=== PATIENT | male | born 1945 | race Caucasian/White ===

== ENCOUNTER 2023-07-27 21:13 | Observation (INO) | payer MEDICARE, SELFPAY ==
--- NOTE | ~2023-07-27 | CT_ITS ---
EXAMINATION: CT brain wo con DATE: 07/27/2023 22:02 INDICATION: fall head injury . TECHNIQUE: Computed tomography (CT) of the head was performed without intravenous contrast. The mA wa s adjusted according to patient size. Iterative reconstruction technique was employed. The dose-lengt h product was 605.33 mGy-cm. COMPARISON: None. FINDINGS: No acute intracranial hemorrhage or extra-axial fluid collection. No hydrocephalus, mass, or herniation. No acute ischemic infarct. Unremarkable dural venous sinus attenuation. No acute osseous abnormality. The aerated spaces are clear. Moderate atrophy and chronic white matter change. Atherosclerotic intracranial calcification. Bilater al lens replacements. Right frontal and parietal encephalomalacia. IMPRESSION: No acute intracranial process. Reviewed, dictated and finalized at location K.
--- NOTE | ~2023-07-27 | CT_ITS ---
EXAMINATION: CT cervical spine wo con DATE: 07/27/2023 22:02 INDICATION: neck pain status post fall TECHNIQUE: Computed tomography (CT) of the cervical spine was performed without intravenous contrast. Automated exposure control and iterative reconstruction technique were employed. The dose-length pro duct was 310.04 mGy-cm. COMPARISON: None. FINDINGS: Vertebral Body Alignment: Intact. Craniocervical and atlantoaxial alignment: Moderate degenerative change. Alignment intact. Osseous structures/fracture: No evidence of a lytic or blastic process in the visualized spine. No e vidence of acute fracture. Cervical soft tissues: The paraspinal soft tissues planes are maintained. Biapical pleural scarring. Degenerative changes: Degenerative changes, without severe neural foraminal or central canal narrowin g. IMPRESSION: No acute fracture or traumatic malalignment in the cervical spine. Reviewed, dictated and finalized at location K.
--- NOTE | ~2023-07-27 | CT_ITS ---
EXAMINATION: CT thoracic spine wo con DATE: 07/27/2023 22:02 INDICATION: back pain . TECHNIQUE: Computed tomography (CT) of the thoracic spine was performed without intravenous contrast. Automated exposure control and iterative reconstruction technique were employed. The dose-length pro duct was 800.01 mGy-cm. COMPARISON: None FINDINGS: THORACIC SPINE: Multilevel moderate degenerative disc disease. Mild angular kyphosis centered at T12. Severe anterior wedge deformity at T12, with minimal involvement of the fracture lines with the posterior cortex and no retropulsion. No significant paraspinal hematoma. Aortic valve and coronary artery calcifications . Moderate atherosclerotic calcifications of the aorta. Calcified mediastinal lymph node. Biapical pl eural scarring. Senescent changes in the lungs. Dependent atelectasis. IMPRESSION: Severe, acute versus chronic burst fracture at T12 with no retropulsion. No comparisons are available . Correlate for history of remote trauma and current pain/point tenderness. Reviewed, dictated and finalized at location K. IMPRESSION: Severe, acute versus chronic burst fracture at T12 with no retropulsion. No com parisons are available. Correlate for history of remote trauma and current pain /point tenderness.
--- NOTE | ~2023-07-27 | XR_ITS ---
EXAMINATION: XR chest 1V Exam Date/Time: 07/27/2023 21:55 CDT HISTORY: fall, weakness Comparison: CT T-spine, same date.. RESULT: Lines, tubes, and devices: None. Lungs and pleura: Senescent change. Cardiomediastinal silhouette: Stable. Other: No acute upper abdominal finding. Severe height loss at T12. IMPRESSION: No acute cardiopulmonary process. Severe height loss at T12, please refer to the report on the [facility] CT thoracic spine for additional details. Reviewed, dictated and finalized at location K. IMPRESSION: No acute cardiopulmonary process. Severe height loss at T12, please refer to abhilash report on the concurrent CT thoracic spine for additional details.
[2023-07-27 21:14] VITALS: BP 137/66; PULSE 74; RESP 20; TEMP 37.1; O2SAT 97
[2023-07-27] MEDS: SODIUM CHLORIDE 0.9% IV 1,000 ML 999 ML IV CONT (21:30)
[2023-07-27 21:32] VITALS: BP 124/57; PULSE 71
[2023-07-27 21:33] VITALS: BP 129/57; PULSE 73
[2023-07-27 22:36] LABS: Basophils Percent Auto 0.3 % (0.2-1.2); Eosinophils Absolute Auto 0.1 K/mm3 (0-0.3); Eosinophils Percent Auto 0.7 % (0-4.4); Hematocrit 32.5 % (42.0-52.0); Hemoglobin 10.5 g/dL (14.0-18.0); Immature Granulocyte Absolute 0.18 K/mm3 (0.00-0.031); Immature Granulocyte Percent A 1.3 % (0-0.5); Lymphocytes Absolute Auto 1.34 K/mm3 (0.9-3.2); Lymphocytes Percent Auto 9.9 % (18.3-44.2); Mean Corpuscular HGB Conc 32.3 g/dl (32-36); Mean Corpuscular Hemoglobin 31.5 pg (26-34); Mean Corpuscular Volume 97.6 fl (80-100); Mean Platelet Volume 9.4 fl (7.4-10.4); Monocytes Absolute Auto 0.7 K/mm3 (0.1-0.6); Monocytes Percent Auto 5.2 % (2.6-8.5); Neutrophils Absolute Auto 11.1 K/mm3 (1.3-6.7); Neutrophils Percent Auto 82.6 % (45.5-73.1); Platelet Count Result 285 k/mm3 (150-375); Red Blood Count 3.33 M/mm3 (4.6-6.20); Red Cell Distribution Width 14.6 % (11.5-14.5); White Blood Count 13.5 K/mm3 (4.5-10.0)
[2023-07-27 22:47] LABS: INR 1.1; Prothrombin Time 14.2 Seconds (11.1-14.7)
[2023-07-27 22:48] LABS: Partial Thromboplastin Time 34.2 Seconds (22.3-36.8)
--- NOTE | 2023-07-27 22:49 | PC.NURSE ---
Patient called out to nursing station requesting pain medication. Notified EDP Dr. Warren.
[2023-07-27 22:50] LABS: Alanine Aminotransferase 46 U/L (6-50); Albumin Level 3.3 g/dL (3.5-5.1); Alkaline Phosphatase 233 U/L (38-126); Anion Gap 4 mmol/L (8-16); Aspartate Amino Transferase 60 U/L (17-59); Bilirubin,Total 0.5 mg/dL (0.2-1.3); Blood Urea Nitrogen 14 mg/dL (9-20); Calcium 8.8 mg/dL (8.4-10.2); Carbon Dioxide 23 mmol/L (22-30); Chloride 107 mmol/L (98-107); Estimated CRCL calculation 76 ml/min; Estimated Glomerular Filt Rate > 60; Glucose 192 mg/dL (65-110); Potassium 3.8 mmol/L (3.4-5.0); Sodium 134 mmol/L (137-145)
[2023-07-27 22:53] LABS: Lactic Acid Reflex 1.2 mmol/L (0.7-2.0); Magnesium 2.1 mg/dL (1.6-2.3)
[2023-07-27] MEDS: MORPHINE SULFATE (*CRX) 4 MG/ML INJ IV PUSH (22:55)
[2023-07-27 23:05] LABS: Troponin I < 0.012 ng/mL (0.000-0.034)
--- NOTE | 2023-07-27 23:13 | PM.IMHP ---
H&P: HPI History of Present Illness Date/Time: 07/27/23 23:13 Chief Complaint: FALL Narrative: THIS IS A 78-YEAR-OLD MALE STATUS POST TOTAL HIP ARTHROPLASTY OF THE RIGHT HIP, PATIENT RESIDING AT A REHABILITATION CENTER HIS SUSTAINED A FALL WAS BROUGHT TO THE EMERGENCY ROOM FOR EVALUATION FOUND TO HAVE A COMPRESSION FRACTURE OF THE VERTEBRAE. PATIENT IS NOW BEING PLACED FOR OBSERVATION. DENIES ANY LOSS OF CONSCIOUSNESS. NO DIZZINESS NO LIGHTHEADEDNESS, HAS LOWER BACK PAIN. EXAMINATION: CT brain wo con DATE: 07/27/2023 22:02 INDICATION: fall head injury . TECHNIQUE: Computed tomography (CT) of the head was performed without intravenous contrast. The mA was adjusted according to patient size. Iterative reconstruction technique was employed. The dose-length product was 605.33 mGy-cm. COMPARISON: None. FINDINGS: No acute intracranial hemorrhage or extra-axial fluid collection. No hydrocephalus, mass, or herniation. No acute ischemic infarct. Unremarkable dural venous sinus attenuation. No acute osseous abnormality. The? aerated spaces are clear. Moderate atrophy and chronic white matter change. Atherosclerotic intracranial calcification. Bilateral lens replacements. Right frontal and parietal encephalomalacia. IMPRESSION:? No acute intracranial process. EXAMINATION: CT cervical spine wo con DATE: 07/27/2023 22:02 INDICATION: neck pain status post fall TECHNIQUE: Computed tomography (CT) of the cervical spine was performed without intravenous contrast. Automated exposure control and iterative reconstruction technique were employed. The dose-length product was 310.04 mGy-cm. COMPARISON: None. FINDINGS: Vertebral Body Alignment: Intact. Craniocervical and atlantoaxial alignment: Moderate degenerative change. Alignment intact. Osseous structures/fracture: No evidence of a lytic or blastic process in the visualized spine.? No evidence of acute fracture. Cervical soft tissues: The paraspinal soft tissues planes are maintained. Biapical pleural scarring. Degenerative changes: Degenerative changes, without severe neural foraminal or central canal narrowing. IMPRESSION:? No acute fracture or traumatic malalignment in the cervical spine. EXAMINATION: CT thoracic spine wo con DATE: 07/27/2023 22:02 INDICATION: back pain . TECHNIQUE: Computed tomography (CT) of the thoracic spine was performed without intravenous contrast. Automated exposure control and iterative reconstruction technique were employed. The dose-length product was 800.01 mGy-cm. COMPARISON: None FINDINGS: THORACIC SPINE: Multilevel moderate degenerative disc disease. Mild angular kyphosis centered at T12. Severe anterior wedge deformity at T12, with minimal involvement of the fracture lines with the posterior cortex and no retropulsion. No significant paraspinal hematoma. Aortic valve and coronary artery calcifications. Moderate atherosclerotic calcifications of the aorta. Calcified mediastinal lymph node. Biapical pleural scarring. Senescent changes in the lungs. Dependent atelectasis. IMPRESSION: Severe, acute versus chronic burst fracture at T12 with no retropulsion. No comparisons are available. Correlate for history of remote trauma and current pain/point tenderness. EXAMINATION:? XR chest 1V Exam Date/Time:? 07/27/2023 21:55 CDT HISTORY: fall, weakness ? Comparison:? CT T-spine, same date.. RESULT: Lines, tubes, and devices:? None. Lungs and pleura:? Senescent change. Cardiomediastinal silhouette:? Stable. Other:? No acute upper abdominal finding. Severe height loss at T12. ? IMPRESSION: No acute cardiopulmonary process. Severe height loss at T12, please refer to the report on the concurrent CT thoracic spine for additional details. Review of Systems Review of Systems: FALL, LOWER BACK PAIN [facility] Social History Social History Sonia
[2023-07-27 23:18] VITALS: BP 137/74; PULSE 82; RESP 16; O2SAT 97
--- NOTE | 2023-07-27 23:22 | ED.GENADULT ---
HPI - General Adult General Chief complaint: Fall Stated complaint: fall Time Seen by Provider: 07/27/23 21:21 History of Present Illness HPI narrative: Patient 78-year-old gentleman presents emergency department chief complaint of back pain status post fall. The patient reports that is on Eliquis and is currently at [facility] and doing rehab after a recent hip fracture. Patient reports that he lost his balance fell backwards struck his head on carpet. Patient reports that he has pain in the mid back denies any weakness in the arms or legs. Related Data Allergies Allergy/AdvReac Type Severity Reaction Status Date / Time bee venom protein (honey bee) Allergy Unknown Verified 07/27/23 21:27 cephalexin [From Keflex] Allergy Unknown Verified 07/27/23 21:27 Review of Systems Review of Systems: A 10 system review of systems was completed on the patient and is negative except for what is stated in the HPI. Nursing and ancillary documentation was reviewed. Exam Narrative: GENERAL: Well-appearing, well-nourished, and in no acute distress. HEAD: Normocephalic, atraumatic. EYES: PERRLA and EOMI. ENT: Nares clear, no rhinorrhea or epistaxis. Mucous membranes moist. NECK: Supple. CHEST: Clear to auscultation. No respiratory distress. HEART: Regular rate and rhythm. No murmur heard. Normal peripheral pulses. ABDOMEN: Soft, nontender, nondistended, normal active bowel sounds. EXTREMITIES: Normal range of motion. No edema. Back: There is tenderness to palpation of the thoracic spine SKIN: Warm, dry, no rash. NEURO: No focal deficits. Alert and oriented x3. No saddle anesthesia PSYCH: Normal mood and affect. Course Vital Signs Vital signs: Vital Signs Temperature 37.1 C 07/27/23 21:14 Pulse Rate 74 07/27/23 21:14 Respiratory Rate 20 07/27/23 21:14 Blood Pressure 137/66 07/27/23 21:14 Pulse Oximetry 97 07/27/23 21:14 Oxygen Delivery Room Air 07/27/23 21:14 Temperature 37.1 C 07/27/23 21:14 Pulse Rate 82 07/27/23 23:18 Respiratory Rate 16 07/27/23 23:18 Blood Pressure 137/74 07/27/23 23:18 Pulse Oximetry 97 07/27/23 23:18 Oxygen Delivery Room Air 07/27/23 21:14 Medical Decision Making MDM Narrative Medical decision making narrative: Differential diagnosis includes intracranial hemorrhage, cervical spine fracture, thoracic spine fracture, electrolyte abnormality, UTI Laboratory studies were obtained on the patient showed normal CBC CMP showed no acute abnormalities troponin was negative Chest x-ray showed a T12 loss of height compression fracture CT chest showed evidence of compression fracture CT head CT C-spine showed no acute abnormality Vital Signs Vital Signs: Vital Signs Temperature 37.1 C 07/27/23 21:14 Pulse Rate 74 07/27/23 21:14 Respiratory Rate 20 07/27/23 21:14 Blood Pressure 137/66 07/27/23 21:14 Pulse Oximetry 97 07/27/23 21:14 Oxygen Delivery Room Air 07/27/23 21:14 Temperature 37.1 C 07/27/23 21:14 Pulse Rate 82 07/27/23 23:18 Respiratory Rate 16 07/27/23 23:18 Blood Pressure 137/74 07/27/23 23:18 Pulse Oximetry 97 07/27/23 23:18 Oxygen Delivery Room Air 07/27/23 21:14 Lab Data 07/27/23 22:29 07/27/23 22:29 Labs: Lab Results 07/27/23 Range/Units 22:29 WBC 13.5 H (4.5-10.0) K/mm3 RBC 3.33 L (4.6-6.20) M/mm3 Hgb 10.5 L (14.0-18.0) g/dL Hct 32.5 L (42.0-52.0) % MCV 97.6 (80-100) fl MCH 31.5 (26-34) pg MCHC 32.3 (32-36) g/dl RDW 14.6 H (11.5-14.5) % Plt Count 285 (150-375) k/mm3 MPV 9.4 (7.4-10.4) fl Immature Gran % (Auto) 1.3 H (0-0.5) % Neut % (Auto) 82.6 H (45.5-73.1) % Lymph % (Auto) 9.9 L (18.3-44.2) % Pettis % (Auto) 5.2 (2.6-8.5) % Eos % (Auto) 0.7 (0-4.4) % Baso % (Auto) 0.3 (0.2-1.2) % Lymph # (Auto) 1.34 (0.9-3.2) K/mm3 Pettis # (Auto) 0.7 H (0.1-0.6) K/mm3 Eos # (Auto) 0.1 (0-0.3) K/mm
[2023-07-27 23:34] LABS: Procalcitonin 0.1 ng/mL
[2023-07-27] MEDS: dexAMETHasone SOD PHOS INJ 10 MG/ML 1 ML VIAL IV PUSH (23:34)
--- NOTE | 2023-07-27 23:38 | PC.NURSE ---
Patient stated his pain was still a 11/16. Notified EDP Dr. Warren who VRBO anther dose of morphine 2mg IVP.
[2023-07-27] MEDS: MORPHINE SULFATE (*CRX) 2 MG/ML INJ IV PUSH (23:41)
[2023-07-28] VITALS (8 sets, daily range): BP systolic 141–168; BP diastolic 62–78; PULSE 71–88; RESP 12–18; TEMP 36.1–37.1; O2SAT 97–100
--- NOTE | 2023-07-28 01:25 | ADMGEN ---
This patient, Bruno Baker, was admitted to [facility] Surg Room 306-02. Patient/family oriented to hospital policies and general routines including ID bracelet, bed and alarms, visiting hours, pain management, procedures, bathroom and other care routines, personal items, smoking policy, room service/diet, and visiting hours. Information on how to activate the Rapid Response Team has been discussed. Patient/Family are encouraged to report perceived risks to care and to ask questions if they do not understand what they are told or what they should do.
[2023-07-28] MEDS: LEVOTHYROXINE SODIUM 25 MCG TABLET PO (05:26)
[2023-07-28 06:11] LABS: Appearance Urine Clear (Clear); Bilirubin Urine Negative (Negative); Blood Urine Negative (Negative); Color Urine Yellow (Yellow); Glucose Urine UA Negative (Negative); Ketones Urine Negative (Negative); Leukocyte Esterase Ur Negative LEU/UL (Negative); Nitrate Urine Negative (Negative); Protein Urine Negative (Negative); Specific Grav Ur 1.014 (1.001-1.035); Urobilinogen Urine 0.2 mg/dL (<2.0)
[2023-07-28 06:16] LABS: Add Urine Microscopic? NO
--- NOTE | 2023-07-28 07:57 | PM.IMPN ---
Progress Note: A&P Assessment and Plan (1) Compression fracture: Status: Acute (2) Fall from ground level: Code(s): W18.30XA - Fall on same level, unspecified, initial encounter Status: Acute Plan Patient currently residing in a SNF for rehab following a total right hip arthroplasty. He lost his balance causing him to fall backward striking his head on the carpet. Patient is currently on Eliquis. Head CT was negative for acute intracranial process. Thoracic CT revealed severe burst fracture at T12 with no retropulsion. Chest XR showed a severe height loss of T12. Patient reports mild mid back pain. He denies tingling/numbness to the extremities, saddle anesthesia, shortness of breath, chest pain, and changes in bowel/bladder. Analgesics Neurosurgery consulted Time Spent With Patient Time with patient: 25 - 35 minutes Subjective Date/time seen: 07/28/23 07:57 Interval history: 78 year old male s/p total right hip arthroplasty residing at a SNF where he lost his balance causing him to fall backward striking his head on the carpet. Patient reported to the ED for back pain following the fall and was found to have a T12 compression fracture on chest XR and CT chest. Today patient is pleasant lying in bed. He continues to have mild pain to his mid back. He states he was previously at a SNF doing rehab for his right hip and would be interested in returning to the SNF after this hospitalization. He denies weakness, numbness, chest pain, shortness of breath, changes in bowel and bladder. ? Review of Systems Review of Systems: All systems reviewed & are unremarkable except as noted in HPI and below Exam Narrative: AF HR 88 RR 12 SpO2 97 BP 168/78 General: well nourished, well-developed male in no acute respiratory distress who is nontoxic appearing, lying semi recumbent in bed. HEENT: Normocephalic. Atraumatic. Pupils equal round reactive to light. Extraocular movement intact. Sclera clear and anicteric. No facial asymmetry. Chest: Lungs are clear to auscultation bilaterally. No wheezes or crackles. CV: Heart was regular rate and rhythm. S1/S2. No murmurs, gallops, or rubs. Abd: Abdomen was soft. Nontender. Nondistended. Positive bowel sounds. No organomegaly or masses. Ext: No clubbing, cyanosis, or edema. 2+ DP pulses bilaterally. Neuro: Patient is alert and oriented x4. Strength is 5/5 in both upper and lower extremities. Speech is clear. Psych: Normal mood and affect. Patient is pleasant and cooperative. Skin: Warm and dry. No rashes noted. Objective Data Vital Signs Vital Signs: Vital Signs - 24 hr 07/27/23 21:14 07/27/23 21:32 07/27/23 21:33 Temperature 98.8 F Pulse Rate 74 71 73 Respiratory Rate 20 Blood Pressure 137/66 124/57 L 129/57 L Pulse Oximetry 97 Oxygen Delivery Room Air 07/27/23 23:18 07/28/23 00:48 07/28/23 01:15 Temperature Pulse Rate 82 83 Respiratory Rate 16 18 Blood Pressure 137/74 141/75 H Pulse Oximetry 97 100 Oxygen Delivery Room Air 07/28/23 05:55 Temperature 98.2 F Pulse Rate 88 Respiratory Rate 12 Blood Pressure 168/78 H Pulse Oximetry 97 Oxygen Delivery Intake/Output Intake/Output: Intake & Output 07/25/23 07/26/23 07/27/23 07/28/23 23:59 23:59 23:59 23:59 Intake Total 1000 750 Balance 1000 750 Meds/Results Medications: Active Medications Generic Name Dose Route Start Last Admin Trade Name Freq PRN Reason Stop Dose Admin Acetaminophen 1,000 mg 07/28/23 02:27 Acetaminophen 500 Mg Tablet PO Q6H PRN Pain (Scale Score 1-3) Hydrocodone Bitart/Acetaminophen 1 tab 07/27/23 23:28 Hydrocodone/Acetaminophen (*Crx) 5-325 Mg Tablet PO Q4H PRN Pain Rated 4-6 Apixaban 2.5 mg 07/28/23 09:00 Apixaban 2.5 Mg Tablet PO Q12HR AMANDA Atorvastatin Calcium 80 mg 07/28/23 21:00 Atorvastatin 40 Mg Tablet PO QHS AMANDA Fluoxetine HCl 20 mg 07/28/23 09:00 Fluoxetine
[2023-07-28 08:28] LABS: Glucose Point of Care 223 mg/dl (65-105)
[2023-07-28] MEDS: PROPRANOLOL HCL 10 MG TABLET PO ×3 (08:28→17:06)
[2023-07-28] MEDS: PANTOPRAZOLE 40 MG TABLET PO (08:29)
[2023-07-28] MEDS: LOSARTAN POTASSIUM 25 MG TABLET PO (08:29)
[2023-07-28] MEDS: FLUoxetine HCL 20 MG CAPSULE PO (08:29)
[2023-07-28] MEDS: APIXABAN 2.5 MG TABLET PO ×2 (08:29→20:13)
[2023-07-28 10:09] LABS: Hematocrit 32.2 % (42.0-52.0); Hemoglobin 10.1 g/dL (14.0-18.0); Mean Corpuscular HGB Conc 31.4 g/dl (32-36); Mean Corpuscular Hemoglobin 31.3 pg (26-34); Mean Corpuscular Volume 99.7 fl (80-100); Mean Platelet Volume 9.6 fl (7.4-10.4); Platelet Count Result 261 k/mm3 (150-375); Red Blood Count 3.23 M/mm3 (4.6-6.20); Red Cell Distribution Width 14.4 % (11.5-14.5); White Blood Count 10.1 K/mm3 (4.5-10.0)
[2023-07-28 10:33] LABS: Anion Gap 5 mmol/L (8-16); Blood Urea Nitrogen 13 mg/dL (9-20); Calcium 8.8 mg/dL (8.4-10.2); Carbon Dioxide 24 mmol/L (22-30); Chloride 104 mmol/L (98-107); Estimated CRCL calculation 86 ml/min; Estimated Glomerular Filt Rate > 60; Glucose 265 mg/dL (65-110); Potassium 4.8 mmol/L (3.4-5.0); Sodium 133 mmol/L (137-145)
[2023-07-28 12:04] LABS: Glucose Point of Care 225 mg/dl (65-105)
[2023-07-28 16:40] LABS: Glucose Point of Care 130 mg/dl (65-105)
--- NOTE | 2023-07-28 17:46 | WPDNEURCNPN ---
Assessment and Plan Assessment and plan (1) T12 burst fracture: Code(s): S22.081A - Stable burst fracture of T11-T12 vertebra, initial encounter for closed fracture Status: Acute Assessment and Plan: Patient is a pleasant 78-year-old male who was recovering at senior living facility from a right total hip arthroplasty who fell striking his back on a piece of furniture and his head on the ground. He was found to have a T12 burst fracture with severe height loss. The patient is neurologically intact. This fracture does not appear to be unstable given no posterior bony element involvement or subluxation. Plan to treat him in and [id number] LSO brace. The patient is to wear this brace when upright and ambulating, and can remove this when in bed, reclining, sleeping, and when showering. Recommend treating the patient in the brace for the next 3 months, he can follow-up in 6-8 weeks with repeat thoracolumbar x-rays (AP and lateral veiws) while in brace with an office follow-up visit. Consult date: 07/28/23 Reason for consult: s/p fall with T12 burst fracture HPI: Bruno Baker is a 78 year old male who is currently residing at a senior living facility after having a right total hip replacement and fell. Patient states he fell backwards hitting his back on the some type of furniture and then onto the ground hitting his head. He does report back pain but states currently the pain medication is helping. We were consulted after findings of a T12 burst fracture. The patient denies any type of wraparound pain, radiating leg symptoms such as pain, paresthesias, focal weakness, nor any bladder or bowel dysfunction. The patient is on Eliquis, a head CT was obtained and did not show any acute intracranial process. [facility] Social History Social History Smoking status: Former smoker Alcohol intake: former Substance use: never Substance use type: does not use Do You Feel Safe in your Home?: Yes Lack of Transportation: No Lack of Food: Never True Current Housing: I Have Housing Concerned About Future Housing: No Difficulty Paying Gas/Electric Bills: No Difficulty Paying for Meds: No Currently Unemployed: No Education: Bachelor's Degree Difficulty w/ Childcare or Family Care: No Spiritual care concerns: No Meds Home Medications and Allergies Home Medications Medication Instructions Recorded Confirmed Type acetaminophen 500 mg tablet 1,000 mg PO Q6H PRN Pain (Scale 07/28/23 07/28/23 History Score 1-3) apixaban 2.5 mg tablet (Eliquis) 2.5 mg PO BID 07/28/23 07/28/23 History atorvastatin 80 mg tablet 80 mg PO QHS 07/28/23 07/28/23 History fluoxetine 20 mg capsule 20 mg PO DAILY 07/28/23 07/28/23 History levothyroxine 25 mcg tablet 25 mcg PO DAILY 07/28/23 07/28/23 History losartan 25 mg tablet 25 mg PO DAILY 07/28/23 07/28/23 History methocarbamol 500 mg tablet 500 mg PO TID PRN Pain (Scale 07/28/23 07/28/23 History Score 4-6) pantoprazole 40 mg tablet,delayed 40 mg PO DAILY 07/28/23 07/28/23 History release propranolol 10 mg tablet 10 mg PO TID 07/28/23 07/28/23 History senna-docusate sodium tablet 2 tablet PO BID PRN Constipation 07/28/23 07/28/23 History Allergies Allergy/AdvReac Type Severity Reaction Status Date / Time bee venom protein (honey bee) Allergy Unknown Verified 07/27/23 21:27 cephalexin [From Keflex] Allergy Unknown Verified 07/27/23 21:27 Vital Signs Vital Signs - 24 hr 07/27/23 21:14 07/27/23 21:32 07/27/23 21:33 Temperature 98.8 F Pulse Rate 74 71 73 Respiratory Rate 20 Blood Pressure 137/66 124/57 L 129/57 L Pulse Oximetry 97 Oxygen Delivery Room Air 07/27/23 23:18 07/28/23 00:48 07/28/23 01:15 Temperature Pulse Rate 82 83 Respiratory Rate 16 18 Blood Pressure 137/74 141/75 H Pulse Oximetry 97 100 Oxygen Delivery Room Air 07/28/23 05:55
[2023-07-28] MEDS: ATORVASTATIN 40 MG TABLET 80 MG PO (20:12)
[2023-07-28 21:04] LABS: Glucose Point of Care 146 mg/dl (65-105)
[2023-07-29] MEDS: LEVOTHYROXINE SODIUM 25 MCG TABLET PO (05:04)
[2023-07-29] MEDS: HYDROcodone/acetaminophen (*CRX) 5-325 MG TABLET 1 TAB PO (05:09)
[2023-07-29 05:38] VITALS: BP 155/65; PULSE 68; RESP 18; TEMP 36.8; O2SAT 99
[2023-07-29 08:24] LABS: Hematocrit 33.8 % (42.0-52.0); Hemoglobin 10.7 g/dL (14.0-18.0); Mean Corpuscular HGB Conc 31.7 g/dl (32-36); Mean Corpuscular Hemoglobin 30.7 pg (26-34); Mean Corpuscular Volume 96.8 fl (80-100); Mean Platelet Volume 9.5 fl (7.4-10.4); Platelet Count Result 266 k/mm3 (150-375); Red Blood Count 3.49 M/mm3 (4.6-6.20); Red Cell Distribution Width 14.2 % (11.5-14.5); White Blood Count 13.7 K/mm3 (4.5-10.0)
[2023-07-29 08:44] LABS: Anion Gap 5 mmol/L (8-16); Blood Urea Nitrogen 13 mg/dL (9-20); Calcium 9.2 mg/dL (8.4-10.2); Carbon Dioxide 24 mmol/L (22-30); Chloride 106 mmol/L (98-107); Estimated CRCL calculation 86 ml/min; Estimated Glomerular Filt Rate > 60; Glucose 139 mg/dL (65-110); Potassium 3.4 mmol/L (3.4-5.0); Sodium 135 mmol/L (137-145)
[2023-07-29 09:02] VITALS: PULSE 66
[2023-07-29] MEDS: FLUoxetine HCL 20 MG CAPSULE PO (09:02)
[2023-07-29] MEDS: LOSARTAN POTASSIUM 25 MG TABLET PO (09:02)
[2023-07-29] MEDS: APIXABAN 2.5 MG TABLET PO (09:02)
[2023-07-29] MEDS: PANTOPRAZOLE 40 MG TABLET PO (09:02)
[2023-07-29] MEDS: PROPRANOLOL HCL 10 MG TABLET PO ×2 (09:02→12:59)
[2023-07-29 09:05] LABS: Glucose Point of Care 154 mg/dl (65-105)
[2023-07-29 10:52] VITALS: O2SAT 98
[2023-07-29 12:59] VITALS: PULSE 66
[2023-07-29] MEDS: ACETAMINOPHEN 500 MG TABLET 1000 MG PO (12:59)
--- NOTE | 2023-07-29 13:04 | PM.DS ---
DS: Admitting Diagnosis Discharge Date 07/29/2023 Admitting Diagnosis Compression fracture Fall from ground level DS: Discharge Diagnosis Discharge Diagnosis (1) Compression fracture: Status: Acute (2) Fall from ground level: Code(s): W18.30XA - Fall on same level, unspecified, initial encounter Status: Acute DS: Summary Hospital Course Reason for hospitalization: Compression fracture Fall from ground level Hospital Course: Patient currently residing in a SNF for rehab following a total right hip arthroplasty. He lost his balance causing him to fall backward striking his head on the carpet. Patient is currently on Eliquis. Head CT was negative for acute intracranial process. Thoracic CT revealed severe burst fracture at T12 with no retropulsion. Chest XR showed a severe height loss of T12. Patient reports mild mid back pain. He denies tingling/numbness to the extremities, saddle anesthesia, shortness of breath, chest pain, and changes in bowel/bladder. He was evaluated by neurosurgery who plan to treat him with an off the shelf LSO brace. Patient is to wear the brace when upright and ambulating and can remove the brace when in bed, reclining, sleeping, and showering. He will remain in this brace for the next 3 months and follow up with neurosurgery in 6 weeks for further imaging. Patient was discharged back to the SNF in stable condition with plan to follow up with PCP in 1 week and neurosurgery in 6 weeks. Time Spent with Patient Time attestation: Total time spent providing and/or coordinating discharge services: Time spent: Greater than 30 minutes Exam Narrative: AF HR 64 RR 16 SpO2 97 BP 118/56 General: well nourished, well-developed male in no acute respiratory distress who is nontoxic appearing, lying semi recumbent in bed. HEENT: Normocephalic. Atraumatic. Pupils equal round reactive to light. Extraocular movement intact. Sclera clear and anicteric. No facial asymmetry. Chest: Lungs are clear to auscultation bilaterally. No wheezes or crackles. CV: Heart was regular rate and rhythm. S1/S2. No murmurs, gallops, or rubs. Abd: Abdomen was soft. Nontender. Nondistended. Positive bowel sounds. No organomegaly or masses. Ext: No clubbing, cyanosis, or edema. 2+ DP pulses bilaterally. Neuro: Patient is alert and oriented x2 (baseline). Strength is 5/5 in both upper and lower extremities. Speech is clear. Psych: Normal mood and affect. Patient is pleasant and cooperative. Skin: Warm and dry. No rashes noted. DS: Data Data Completed and Pending Labs on day of discharge: Labs from last 24 hours 07/29/23 07/29/23 07/28/23 09:01 07:49 20:33 WBC 13.7 H RBC 3.49 L Hgb 10.7 L Hct 33.8 L MCV 96.8 MCH 30.7 MCHC 31.7 L RDW 14.2 Plt Count 266 MPV 9.5 Sodium 135 L Potassium 3.4 Chloride 106 Carbon Dioxide 24 Anion Gap 5 L BUN 13 Creatinine 0.70 Estim Creat Clear Calc 86 Estimated GFR > 60 Glucose 139 H POC Capillary Glucose 154 H 146 H Calcium 9.2 07/28/23 16:32 WBC RBC Hgb Hct MCV MCH MCHC RDW Plt Count MPV Sodium Potassium Chloride Carbon Dioxide Anion Gap BUN Creatinine Estim Creat Clear Calc Estimated GFR Glucose POC Capillary Glucose 130 H Calcium Discharge Plan Discharge Attending physician on discharge: Yina Strong Consulting providers: Natalie Tellez Discharging Clinician: Trina Meyer Anticipated Discharge Date/Time: 07/29/23 12:43 Patient Disposition: Inpatient Rehab Facility Activity: as tolerated Diet: as tolerated Discharge Instructions: You were seen at the hospital for a T12 compression fracture. You will return to the rehab center you were previously at for the total right hip arthroplasty to continue rehabilitation. You were seen by neurosurgery during your hospitalization and they recommend remaining in the off-the-she
[2023-07-29 14:00] VITALS: BP 118/56; PULSE 64; RESP 16; TEMP 36.8; O2SAT 97
[2023-07-29 14:15] LABS: SARS-CoV-2 RNA PCR Negative (Negative)
== END 2023-07-29 13:00 ==
LOC: ANHED 23:24 → ANH3MEDSUR 07-28 01:46
PROVIDERS: Student in an Organized Health Care Education/Training Program; Admitting Provider Internal Medicine; Emergency Provider Emergency Medicine; Visit Provider Family Medicine
DX: S22.081A Stable burst fracture of T11-T12 vertebra, initial encounter for closed fracture (principal); W18.30XA Fall on same level, unspecified, initial encounter; Z11.52 Encounter for screening for COVID-19; Z96.641 Presence of right artificial hip joint; Z87.891 Personal history of nicotine dependence; Z79.1 Long term (current) use of non-steroidal anti-inflammatories (NSAID); Z79.01 Long term (current) use of anticoagulants
CPT/HCPCS: 36415; 70450; 71045; 72125; 72128; 80048; 80053; 82948; 83605; 83735; 84145; 84484; 85025; 85027; 85610; 85730; 87635; 96361; 96374; 96375; 96376; 99285; A9270; G0378; J1100; J2270; J7030

== ENCOUNTER 2023-08-01 21:33 | Emergency (ER) | payer MEDICARE, SELFPAY ==
--- NOTE | ~2023-08-01 | CT_ITS ---
EXAMINATION: CT thoracic spine wo con DATE: 08/01/2023 22:50 INDICATION: Back injury. TECHNIQUE: Computed tomography (CT) of the thoracic spine was performed without intravenous contrast. Automated exposure control and iterative reconstruction technique were employed. The dose-length pro duct was 1590.14 mGy-cm. COMPARISON: CT thoracic spine 07/27/2023 FINDINGS: The liver demonstrates surface nodularity, consistent with cirrhosis. There is mild depende nt atelectasis bilaterally. There is smooth septal thickening in the lungs, consistent with mild pulm onary edema. There is 4 degrees levocurvature of thoracic spine. There is a compression fracture of T 12 with 4/5 loss of height. There is mild chronic anterior wedging of L1 and L2 vertebral bodies. The re is mildly decreased disc height at multiple levels in thoracic spine. There is multilevel mild to moderate facet joint osteoarthritis and thoracic spine. On the right, there is mild neural foraminal stenosis at T11-T12 and T12-L1. On the left, there is mild neural foraminal stenosis at T10-T11 and T 11-T12. There is mild central canal stenosis at T12-L1. IMPRESSION: 1. Age-indeterminate T12 compression fracture, stable from 07/27/2023. 2. Mild thoracic spondylosis. 3. Mild pulmonary edema. 4. Cirrhosis of the liver. Reviewed, dictated and finalized at location E.
--- NOTE | ~2023-08-01 | XR_ITS ---
EXAMINATION: XR pelvis 1-2V DATE: 08/01/2023 22:35 INDICATION: Pelvic pain. Fall. TECHNIQUE: An anteroposterior view of the pelvis was obtained. COMPARISON: None. FINDINGS: There is a bipolar right hip hemiarthroplasty in near-anatomic alignment. No fracture. Ther e is mild osteoarthritis of the hips. There is moderate lumbar spondylosis. There are skin shine la teral to right hip. IMPRESSION: 1. 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 2. Mild osteoarthritis of the hips. Reviewed, dictated and finalized at location E.
--- NOTE | ~2023-08-01 | XR_ITS ---
EXAMINATION: XR chest 1V DATE: 08/01/2023 22:35 INDICATION: Chest pain. TECHNIQUE: A single frontal view of the chest was obtained. COMPARISON: Chest single view 07/27/2023 FINDINGS: There are perihilar interstitial opacities, consistent mild pulmonary edema. No pleural eff usion or pneumothorax. The heart size is normal. IMPRESSION: 1. Mild pulmonary edema. Reviewed, dictated and finalized at location E. IMPRESSION: 1. Mild pulmonary edema.
--- NOTE | ~2023-08-01 | CT_ITS ---
EXAMINATION: CT brain wo con DATE: 08/01/2023 22:50 INDICATION: Head injury. TECHNIQUE: Computed tomography (CT) of the head was performed without intravenous contrast. The mA wa s adjusted according to patient size. Iterative reconstruction technique was employed. The dose-lengt h product was 756.67 mGy-cm. COMPARISON: Head CT 07/27/2023 FINDINGS: There are scattered areas of low attenuation in the cerebral white matter. There are old in farcts involving right frontal and parietal lobes. There is no intracranial hemorrhage, acute infarct ion, or abnormal intracranial mass lesion. The ventricles are normal in size. The paranasal sinuses a re clear. There are likely changes of ocular lens replacement surgeries. The mastoid air cells are no rmal. IMPRESSION: 1. 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 2. Stable moderate nonspecific cerebral white matter disease, which likely represents chronic small v essel ischemic disease. Reviewed, dictated and finalized at location E. IMPRESSION: 1. 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 2. Stable moderate nonspecific cerebral white matter disease, which likely repr esents chronic small vessel ischemic disease.
--- NOTE | ~2023-08-01 | CT_ITS ---
EXAMINATION: CT cervical spine wo con DATE: 08/01/2023 22:50 INDICATION: Head injury. TECHNIQUE: Computed tomography (CT) of the cervical spine was performed without intravenous contrast. Automated exposure control and iterative reconstruction technique were employed. The dose-length pro duct was 418.20 mGy-cm. COMPARISON: CT cervical spine 07/27/2023 FINDINGS: There is 9 degrees dextrocurvature of cervical spine. There is mild kyphosis of lower cervi hope spine. Vertebral body heights are normal. There is mildly decreased disc height at C2-C3 and sebastien rely decreased disc height at C5-C6 and C6-C7. The following disc levels are specifically discussed: C2-C3: There is mild right and severe left uncovertebral joint osteoarthritis. There is severe right and mild left facet joint osteoarthritis. There is mild bilateral neural foraminal stenosis. There is no central canal stenosis. C3-C4: There is moderate right and mild left uncovertebral joint osteoarthritis. There is severe bila teral facet joint osteoarthritis. There is mild bilateral neural foraminal stenosis. There is no cent ral canal stenosis. C4-C5: There is mild bilateral uncovertebral joint osteoarthritis. There is mild right and severe lef t facet joint osteoarthritis. There is mild left neural foraminal stenosis. There is mild central can al stenosis. C5-C6: There is severe bilateral uncovertebral joint osteoarthritis. There is moderate bilateral face t joint osteoarthritis. There is mild bilateral neural foraminal stenosis. There is mild central db l stenosis. C6-C7: There is severe bilateral uncovertebral joint osteoarthritis. There is moderate bilateral face t joint osteoarthritis. There is mild bilateral neural foraminal stenosis. There is mild central db l stenosis. C7-T1: There is no uncovertebral joint osteoarthritis. There is moderate bilateral facet joint osteoa rthritis. There is no neural foraminal stenosis. There is no central canal stenosis. IMPRESSION: 1. No fracture. 2. Severe cervical spondylosis. Reviewed, dictated and finalized at location E.
[2023-08-01 21:27] VITALS: BP 136/74; PULSE 87; RESP 19; TEMP 36.9; O2SAT 97
--- NOTE | 2023-08-01 22:27 | ED.FALL ---
HPI - Fall General Chief Complaint: Fall Stated Complaint: fall Time Seen by Provider: 08/01/23 21:52 Source: patient Mode of arrival: EMS Limitations: other (poor historian) History of Present Illness HPI Narrative: This is a 78 year old male that presents to the ER after a fall today with head injury. Patient reports he tripped and fell and hit his head on the wall. He did not lose consciousness. He is on a blood thinner so was sent in for further evaluation by his facility. Patient also noted to have a skin tear to his right forearm. Denies any other injuries. Recently sustained a T12 fracture for which he is currently in a brace. Related Data Home Medications Medication Instructions Recorded Confirmed acetaminophen 500 mg tablet 1,000 mg PO Q6H PRN Pain (Scale 07/28/23 07/28/23 Score 1-3) apixaban 2.5 mg tablet (Eliquis) 2.5 mg PO BID 07/28/23 07/28/23 atorvastatin 80 mg tablet 80 mg PO QHS 07/28/23 07/28/23 fluoxetine 20 mg capsule 20 mg PO DAILY 07/28/23 07/28/23 levothyroxine 25 mcg tablet 25 mcg PO DAILY 07/28/23 07/28/23 losartan 25 mg tablet 25 mg PO DAILY 07/28/23 07/28/23 methocarbamol 500 mg tablet 500 mg PO TID PRN Pain (Scale 07/28/23 07/28/23 Score 4-6) pantoprazole 40 mg tablet,delayed 40 mg PO DAILY 07/28/23 07/28/23 release propranolol 10 mg tablet 10 mg PO TID 07/28/23 07/28/23 senna-docusate sodium tablet 2 tablet PO BID PRN Constipation 07/28/23 07/28/23 Allergies Allergy/AdvReac Type Severity Reaction Status Date / Time bee venom protein (honey bee) Allergy Unknown Verified 08/01/23 21:41 cephalexin [From Keflex] Allergy Unknown Verified 08/01/23 21:41 Review of Systems Review of Systems: CONSTITUTIONAL: Denies fever CARDIOVASCULAR: Denies chest pain edema. RESPIRATORY: Denies dyspnea. GASTROINTESTINAL: Denies vomiting MUSCULOSKELETAL: Reports back pain, joint pain, and myalgia. NEUROLOGIC: Denies numbness, or weakness. All systems reviewed & are unremarkable except as noted in HPI and below PMFSH Past Medical History Medical History (Updated 08/02/23 @ 00:25 by Pooja Dong PA-C) History of gastroesophageal reflux (GERD) History of hypertension History of hypothyroidism Social History Social History Smoking status: Former smoker Alcohol intake: former Substance use: never Substance use type: does not use Do You Feel Safe in your Home?: Yes Lack of Transportation: No Lack of Food: Never True Current Housing: I Have Housing Concerned About Future Housing: No Difficulty Paying Gas/Electric Bills: No Difficulty Paying for Meds: No Currently Unemployed: No Education: Bachelor's Degree Difficulty w/ Childcare or Family Care: No Spiritual care concerns: No Exam Narrative: GENERAL: Elderly, well-nourished, and in no acute distress. HEAD: Normocephalic. Contusion to the left forehead EYES: PERRLA and EOMI. ENT: Nares clear, no rhinorrhea or epistaxis. Mucous membranes moist. Oropharynx without tonsillar hypertrophy exudate or other lesions. Bilateral TMs pearly santo non-bulging NECK: Supple. No adenopathy or masses. CHEST: Clear to auscultation. No respiratory distress. No wheezes rales or rhonchi HEART: Regular rate and rhythm. No murmur heard. Normal peripheral pulses. EXTREMITIES: Normal range of motion. No edema or obvious deformity. Strength equal in bilateral upper and lower extremities (5/5) SKIN: Warm, dry, no rash. Superficial skin tear to the right forearm NEURO: No focal deficits. Alert and oriented x3. CN II-XII grossly intact PSYCH: Normal mood and affect Course Course Emergency Course: patient and family updated on workup and agree with plan of care Vital Signs Vital signs: Vital Signs Temperature 98.4 F 08/01/23 21:27 Pulse Rate 87 08/01/23 21:27 Respiratory Rate 19 08/01/23 21:27 Blood Pressure 136/74 08/01/23 21:27 Pulse Oximetry 97
[2023-08-01 23:27] VITALS: BP 156/81; PULSE 73; RESP 16; O2SAT 97
[2023-08-01] MEDS: ACETAMINOPHEN 500 MG TABLET 1000 MG PO (23:36)
[2023-08-02 00:46] VITALS: BP 168/72; PULSE 78; RESP 16; TEMP 37.1; O2SAT 100
== END 2023-08-02 01:57 ==
PROVIDERS: Emergency Provider Physician Assistant
DX: S00.83XA Contusion of other part of head, initial encounter (principal); S22.080D Wedge compression fracture of T11-T12 vertebra, subsequent encounter for fracture with routine healing; I10 Essential (primary) hypertension; E03.9 Hypothyroidism, unspecified; K21.9 Gastro-esophageal reflux disease without esophagitis; Z87.891 Personal history of nicotine dependence; M16.0 Bilateral primary osteoarthritis of hip; Z79.01 Long term (current) use of anticoagulants; Z96.641 Presence of right artificial hip joint; M47.812 Spondylosis without myelopathy or radiculopathy, cervical region; M47.814 Spondylosis without myelopathy or radiculopathy, thoracic region; J81.1 Chronic pulmonary edema; K74.60 Unspecified cirrhosis of liver; W01.198A Fall on same level from slipping, tripping and stumbling with subsequent striking against other object, initial encounter; X58.XXXD Exposure to other specified factors, subsequent encounter
CPT/HCPCS: 70450; 71045; 72125; 72128; 72170; 99284; A9270

== ENCOUNTER 2023-08-24 13:55 | Emergency (ER) | payer MEDICARE, SELFPAY ==
--- NOTE | ~2023-08-24 | CT_ITS ---
EXAMINATION: CT brain wo con DATE: 08/24/2023 14:18 INDICATION: Head injury. TECHNIQUE: Computed tomography (CT) of the head was performed without intravenous contrast. The mA wa s adjusted according to patient size. Iterative reconstruction technique was employed. The dose-lengt h product was 756.67 mGy-cm. COMPARISON: Head CT 08/01/2023 FINDINGS: There are old infarcts in the right frontal lobe and right parietal lobe. There are scatter ed areas of low attenuation in the cerebral white matter. There is no intracranial hemorrhage, acute infarction, or abnormal intracranial mass lesion. The ventricles are normal in size. The paranasal si nuses are clear. There are likely changes of ocular lens replacement surgeries. The mastoid air cells are normal. There is posterior and left lateral scalp soft tissue swelling. IMPRESSION: 1. Old infarcts involving the right frontal and parietal lobes. 2. Stable moderate nonspecific cerebral white matter disease, which likely represents chronic small v essel ischemic disease. Reviewed, dictated and finalized at location E. IMPRESSION: 1. Old infarcts involving the right frontal and parietal lobes. 2. Stable moderate nonspecific cerebral white matter disease, which likely repr esents chronic small vessel ischemic disease.
[2023-08-24 14:01] VITALS: BP 153/69; PULSE 71; RESP 15; TEMP 36.3; O2SAT 100
--- NOTE | 2023-08-24 14:55 | ED.FALL ---
HPI - Fall General Chief Complaint: Fall Stated Complaint: fall Time Seen by Provider: 08/24/23 14:03 Source: patient Mode of arrival: EMS Limitations: no limitations History of Present Illness HPI Narrative: 78-year-old with history of hypertension, T12 compression fracture presently going through rehab at the rehab center was brought in from the center with the complaints of fall. Patient states that he was trying to get out of the bed lost balance and fell backwards. No LOC. has no complaint at this time. Related Data Home Medications Medication Instructions Recorded Confirmed acetaminophen 500 mg tablet 1,000 mg PO Q6H PRN Pain (Scale 07/28/23 07/28/23 Score 1-3) apixaban 2.5 mg tablet (Eliquis) 2.5 mg PO BID 07/28/23 07/28/23 atorvastatin 80 mg tablet 80 mg PO QHS 07/28/23 07/28/23 fluoxetine 20 mg capsule 20 mg PO DAILY 07/28/23 07/28/23 levothyroxine 25 mcg tablet 25 mcg PO DAILY 07/28/23 07/28/23 losartan 25 mg tablet 25 mg PO DAILY 07/28/23 07/28/23 methocarbamol 500 mg tablet 500 mg PO TID PRN Pain (Scale 07/28/23 07/28/23 Score 4-6) pantoprazole 40 mg tablet,delayed 40 mg PO DAILY 07/28/23 07/28/23 release propranolol 10 mg tablet 10 mg PO TID 07/28/23 07/28/23 senna-docusate sodium tablet 2 tablet PO BID PRN Constipation 07/28/23 07/28/23 Allergies Allergy/AdvReac Type Severity Reaction Status Date / Time bee venom protein (honey bee) Allergy Unknown Verified 08/01/23 21:41 cephalexin [From Keflex] Allergy Unknown Verified 08/01/23 21:41 Review of Systems Review of Systems: All systems reviewed & are unremarkable except as noted in HPI and below Constitutional: Constitutional: Reports no additional constitutional complaints Eyes: Eyes: Reports no additional eye complaints ENT: Reports system reviewed and no additional complaints, except as documented Cardiovascular: Cardiovascular: Reports no additional cardiovascular complaints Respiratory: Respiratory: Reports no additional respiratory complaints Gastrointestinal: Gastrointestinal: Reports no additional gastrointestinal complaints Musculoskeletal: Musculoskeletal: Reports no additional musculoskeletal complaints Neurologic: Reports system reviewed and no additional complaints, except as documented Psychiatric: Psychiatric: Reports no additional psychiatric complaints PMFSH Past Medical History Medical History History of gastroesophageal reflux (GERD) History of hypertension History of hypothyroidism Social History Social History Smoking status: Former smoker Alcohol intake: former Substance use: never Substance use type: does not use Do You Feel Safe in your Home?: Yes Lack of Transportation: No Lack of Food: Never True Current Housing: I Have Housing Concerned About Future Housing: No Difficulty Paying Gas/Electric Bills: No Difficulty Paying for Meds: No Currently Unemployed: No Education: Bachelor's Degree Difficulty w/ Childcare or Family Care: No Spiritual care concerns: No Exam Narrative: GENERAL: Well-appearing, well-nourished, and in no acute distress. HEAD: Normocephalic, atraumatic. EYES: PERRLA and EOMI. ENT: Nares clear, no rhinorrhea or epistaxis. Mucous membranes moist. NECK: Supple. CHEST: Clear to auscultation. No respiratory distress. HEART: Regular rate and rhythm. No murmur heard. Normal peripheral pulses. ABDOMEN: Soft, nontender, nondistended, normal active bowel sounds. EXTREMITIES: Normal range of motion. No edema. SKIN: Warm, dry, no rash. NEURO: No focal deficits. Alert and oriented x3. PSYCH: Normal mood and affect. Course Course Emergency Course: patient comfortably resting on the bed in no discomfort informed him about his CT findings. He feels comfortable going home. Vital Signs Vital signs: Vital Signs Temperature 36.3 C L 04/
[2023-08-24 14:59] VITALS: BP 159/79; PULSE 68; RESP 15; O2SAT 100
--- NOTE | 2023-08-24 15:24 | PC.NURSE ---
Report given to Stephanie at [facility] and Charissa at [facility]
== END 2023-08-24 16:10 ==
PROVIDERS: Emergency Provider Family Medicine
DX: S09.90XA Unspecified injury of head, initial encounter (principal); K21.9 Gastro-esophageal reflux disease without esophagitis; I10 Essential (primary) hypertension; E03.9 Hypothyroidism, unspecified; W06.XXXA Fall from bed, initial encounter
CPT/HCPCS: 70450; 99284